=== PATIENT | female | born 1985 | race Hispanic/Latino ===

== ENCOUNTER 2018-06-25 23:03 | Emergency (ER) | payer BC ==
[2018-06-25 23:30] VITALS: TEMP 98.9; O2SAT 97
[2018-06-26] MEDS ORDERED: Tdap Vaccine 0.5 ml Vial (10-64 yrs) IM ONE (00:52)
--- NOTE | 2018-06-26 01:26 | ED PDOC ---
HPI: Skin/Bite Injury Time Seen by Provider: 06/26/18 00:46 Chief Complaint (Nursing): Bite Chief Complaint (Provider): Bite History Per: Patient History/Exam Limitations: no limitations Onset/Duration Of Symptoms: Other (E[employer]) Additional Complaint(s): 32 years old female presents to ER for evaluation of an injury to right ear after her dog bit her earlier today. Patient reports dogs vaccines are up to date , but her tetanus isn't. PMD: non provided Past Medical History Reviewed: Historical Data, Nursing Documentation, Vital Signs Vital Signs: Last Vital Signs Temp 98.9 F 06/25/18 23:28 Pulse 104 H 06/25/18 23:28 Resp 18 06/25/18 23:28 BP 170/107 H 06/25/18 23:28 Pulse Ox 97 06/25/18 23:28 - Medical History PMH: No Chronic Diseases - Surgical History Surgical History: No Surg Hx - Family History Family History: States: Unknown Family Hx - Home Medications Home Medications: Ambulatory Orders Medication Instructions Recorded RX: Doxycycline Hyclate 100 mg PO BID #13 capsule 06/26/18 - Allergies Allergies/Adverse Reactions: Allergies Allergy/AdvReac Type Severity Reaction Status Date / Time amoxicillin [From Amoxil] Allergy RASH Verified 06/25/18 23:27 celecoxib [From Celebrex] Allergy RASH Verified 06/25/18 23:27 clindamycin Allergy RASH Verified 06/25/18 23:27 Sulfa (Sulfonamide Allergy RASH Verified 06/25/18 23:27 Antibiotics) Review of Systems ROS Statement: Except As Marked, All Systems Reviewed And Found Negative ENT: Positive for: Ear Pain (bite) Physical Exam - Reviewed Nursing Documentation Reviewed: Yes Vital Signs Reviewed: Yes - Physical Exam Appears: Positive for: Well, No Acute Distress Head Exam: Positive for: ATRAUMATIC, NORMOCEPHALIC Skin: Positive for: Normal Color, Warm, Dry Eye Exam: Positive for: Other (0.5 cm very superficial v-shaped abrasion to posterior right auricle without active bleeding or swelling.) Neurologic/Psych: Positive for: Alert, Oriented (x3) - ECG O2 Sat by Pulse Oximetry: 97 (RA) Pulse Ox Interpretation: Normal - Progress ED Course And Treament: Repeat BP: 134/78 Medical Decision Making Medical Decision Making: Time: 51 Initial Plan: --Doryx 100 mg PO --Tetanus 0.5 ml IM --Urine Wound cleansed by RN irritated tetanus prophylaxis. Patient instructed to follow up in 2 days for wound check. ----- Scribe Attestation: Documented by Teresa Oviedo, acting as a scribe for LYNN Coon. Provider Scribe Attestation: All medical record entries made by the Scribe were at my direction and personally dictated by me. I have reviewed the chart and agree that the record accurately reflects my personal performance of the history, physical exam, medical decision making, and the department course for this patient. I have also personally directed, reviewed, and agree with the discharge instructions and disposition. Disposition - Clinical Impression Clinical Impression: Dog bite - Patient ED Disposition Is Patient to be Admitted: No - Disposition Referrals: [facility] [Outside] Disposition: Routine/Home Disposition Time: 01:25 Condition: STABLE Additional Instructions: FOLLOW UP WITH YOUR DOCTOR IN 2 DAYS FOR WOUND CHECK RETURN TO ED IMMEDIATELY FOR ANY CONCERNS OR QUESTIONS MARCOS GOYAL, thank you for letting us take care of you today. Your provider was Edgar Jim MD and you were treated for WOUND CHECK:RT EAR. The emergency medical care you received today was directed at your acute symptoms. If you were prescribed any medication, please fill it and take as directed. It may take several days for your symptoms to resolve. Return to the Emergency Department if your symptoms worsen, do not improve, or if you have any other problems. Please contact your doctor or call one of the physicians/clinics you have been referred to that are listed on the Patient Visit Information form that is included in your discharge packet. Bring any paperwork you were given at discharge with you along with any medications you are taking to your follow up visit. Our treatment cannot replace ongoing medical care by a primary care provider outside of the emergency department. Thank you for allowing the [facility] team to be part of your care today. If you had an X-Ray or CT scan: A Radiologist will review the ED reading if any change in treatment is needed we will contact you. If you had a blood, urine, or wound culture: It will take several days for the results, if any change in treatment is needed we will contact you. If you had an STI test: It will take 48 hours for the results. Please call after 1 week if you have not heard back. Prescriptions: RX: Doxycycline Hyclate 100 mg PO BID #13 capsule Instructions: Animal Bites (DC) Forms: [employer] (Colombian)
[2018-06-26 02:00] VITALS: BP 134/78; PULSE 79; RESP 15
== END 2018-06-26 01:59 | disposition home or self-care (01) ==
LOC: H.ER 23:03
DX: S01.311A Laceration without foreign body of right ear, initial encounter (principal); W54.0XXA Bitten by dog, initial encounter; Y92.89 Other specified places as the place of occurrence of the external cause; Z88.0 Allergy status to penicillin

== ENCOUNTER 2018-07-01 16:08 | Emergency (ER) | payer BC ==
[2018-07-01 16:18] VITALS: RESP 16; O2SAT 98
--- NOTE | 2018-07-01 16:39 | ED PDOC ---
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 Patient was seen in this ED x1 week ago for a wound to the ear. At the time, she received antibiotics and tetanus injection to right shoulder. For the last few days she has been having just pain to right shoulder, but today she noticed redness. She marked it with a pen and noticed redness was rapidly spreading, doctor at work prompted her to come to the ED. Patient denies any fever, chills, nausea, vomit, diarrhea, headache, numbness or loss of sensation to arm. No further medical complaints. PMD: None provided. Past Medical History Reviewed: Historical Data, Nursing Documentation, Vital Signs Vital Signs: Last Vital Signs Temp 99.2 F 07/01/18 16:13 Pulse 93 H 07/01/18 16:13 Resp 16 07/01/18 16:13 BP 151/88 H 07/01/18 16:13 Pulse Ox 98 07/01/18 16:13 - Medical History PMH: Anxiety, Depression - Surgical History Other surgeries: colon resection - Family History Family History: States: Unknown Family Hx - Social History Current smoker - smoking cessation education provided: No Alcohol: Social Drugs: Denies - Home Medications Home Medications: Ambulatory Orders Medication Instructions Recorded RX: Doxycycline Hyclate 100 mg PO BID #13 capsule 06/26/18 RX: Cephalexin [Keflex] 500 mg PO Q6 #40 capsule 07/01/18 - Allergies Allergies/Adverse Reactions: Allergies Allergy/AdvReac Type Severity Reaction Status Date / Time amoxicillin [From Amoxil] Allergy RASH Verified 07/01/18 16:13 celecoxib [From Celebrex] Allergy RASH Verified 07/01/18 16:13 clindamycin Allergy RASH Verified 07/01/18 16:13 Sulfa (Sulfonamide Allergy RASH Verified 07/01/18 16:13 Antibiotics) Review of Systems ROS Statement: Except As Marked, All Systems Reviewed And Found Negative Constitutional: Negative for: Fever, Chills Gastrointestinal: Negative for: Nausea, Vomiting, Diarrhea Musculoskeletal: Positive for: Shoulder Pain (right with area of swelling and redness) Neurological: Negative for: Weakness (loss of sensation to arm), Numbness, Head ache Physical Exam - Reviewed Nursing Documentation Reviewed: Yes Vital Signs Reviewed: Yes - Physical Exam Appears: Positive for: No Acute Distress Head Exam: Positive for: ATRAUMATIC, NORMAL INSPECTION, NORMOCEPHALIC Skin: Positive for: Normal Color, Warm, Dry Eye Exam: Positive for: Normal appearance, EOMI, PERRL ENT: Positive for: Normal ENT Inspection Neck: Positive for: Normal, Painless ROM, Supple Cardiovascular/Chest: Positive for: Regular Rate, Rhythm. Negative for: Murmur Respiratory: Positive for: Normal Breath Sounds. Negative for: Respiratory Distress Gastrointestinal/Abdominal: Positive for: Normal Exam, Soft. Negative for: Tenderness Back: Positive for: Normal Inspection. Negative for: L CVA Tenderness, R CVA Tenderness, Vertebral Tenderness Extremity: Positive for: Normal ROM (upper and lower extremities), Other (Area of erythema is now approximately 3.5cm in diameter. The are marked ealier was approximately 3cm in diameter. Right shoulder warm to touch compared to left.). Negative for: Deformity Neurologic/Psych: Positive for: Alert, Oriented. Negative for: Motor/Sensory Deficits - Laboratory Results Result Diagrams: 07/01/18 16:50 07/01/18 16:50 - ECG O2 Sat by Pulse Oximetry: 98 (RA) Pulse Ox Interpretation: Normal Medical Decision Making Medical Decision Making: Time: 16:19 Initial Impression: Work up for cellulitis, labs, blood culture, benadryl for redness and swelling, antibiotics and reassess patient. Initial Plan: --VBG Shock Panel --BMP --CBC w/ differential --Benadryl 50 mg IVP --Blood culture --Reevaluation 19:00 -Labs showed no signs of systemic infection. Patient given Keflex and Benadryl with improvement of symptoms. No adverse reaction to Keflex. Patient to be discharged home with x10 day course of Keflex and advised to follow up with PMD. Scribe Attestation: Documented by Dominick Mayfield, acting as a scribe for Mirna Stern MD. Provider Scribe Attestation: All medical record entries made by the Scribe were at my direction and personally dictated by me. I have reviewed the chart and agree that the record accurately reflects my personal performance of the history, physical exam, medical decision making, and the department course for this patient. I have also personally directed, reviewed, and agree with the discharge instructions and disposition. Disposition - Clinical Impression Clinical Impression: Cellulitis - Disposition Disposition: Routine/Home Disposition Time: 19:00 Condition: IMPROVED Additional Instructions: Take antibiotics as prescribed. Immediately discontinue antibiotics if you have an adverse reaction. Return to the emergency department if cellulitis spreads, allergic reaction to medication, or other new symptoms. Follow up with primary medical doctor in 3 to 5 days for follow up. Prescriptions: RX: Cephalexin [Keflex] 500 mg PO Q6 #40 capsule Instructions: Cellulitis (Skin Infection), Adult (DC) Forms: [employer] (Bengali) Print Language: [id number]
[2018-07-01] MEDS ORDERED: DiphenhydrAMINE 50 mg/ml Inj IVP STA (16:48)
[2018-07-01 16:55] LABS: BASO # 0.1 K/uL (0.0-0.2); BASO % 0.9 % (0.0-2.0); EOS # 0.2 K/uL (0.0-0.7); HEMOGLOBIN 13.2 g/dL (12.0-16.0); LYMPH # 1.6 K/uL (1.0-4.3); LYMPH % 19.7 % (20.0-40.0); MEAN CELL VOLUME 87.1 fl (81.0-99.0); MEAN CORPUSCULAR HEMOGLOBIN 29.1 pg (27.0-31.0); MEAN CORPUSCULAR HGB CONC 33.4 g/dL (33.0-37.0); MONO # 0.5 K/uL (0.0-0.8); NEUT # 5.9 K/uL (1.8-7.0); NEUT % 71.4 % (50.0-75.0); NRBC % 0.1 % (0.0-0.0); RBC 4.54 Mil/uL (3.80-5.20); RED CELL DISTRIBUTION WIDTH 13.7 % (11.5-14.5); WHITE BLOOD COUNT 8.2 K/uL (4.8-10.8)
[2018-07-01 16:58] LABS: VENOUS BLOOD GAS PCO2 43 mmHg (40-60); VENOUS BLOOD GAS PO2 31 mm/Hg (30-55); VENOUS BLOOD PH 7.35 (7.32-7.43)
[2018-07-01] MEDS ORDERED: DiphenhydrAMINE 50 mg/ml Inj ONE (17:03)
[2018-07-01 17:10] LABS: BLOOD UREA NITROGEN 14 mg/dl (7-17); CALCIUM 9.7 mg/dL (8.4-10.2); GFR NON-AFRICAN AMERICAN > 60
[2018-07-01 21:10] VITALS: BP 115/73; PULSE 68; TEMP 97.9
== END 2018-07-01 19:25 | disposition home or self-care (01) ==
LOC: H.ER 16:08
DX: L03.113 Cellulitis of right upper limb (principal)
CPT/HCPCS: 80048; 81025; 82803; 85025; 87040; 96374; 99284; J1200